=== PATIENT | male | born 1995 | race Caucasian/White ===

== ENCOUNTER 2024-04-19 19:36 | Emergency (ER) | payer MEDICAID ==
[~2024-04-19] VITALS: Ht 175.3 cm; Wt 77.0 kg
[2024-04-19 21:10] VITALS: O2SAT 96
[2024-04-20 02:19] VITALS: BP 109/70; PULSE 69; RESP 18; TEMP 36.89184; O2SAT 97
== END 2024-04-20 02:30 | disposition home or self-care (01) ==
LOC: ER 19:36
DX: F10.229 Alcohol dependence with intoxication, unspecified (principal); Y90.9 Presence of alcohol in blood, level not specified
CPT/HCPCS: 99283; Z7610 ×2